=== PATIENT | male | born 1985 | race Caucasian/White ===

== ENCOUNTER 2017-07-13 23:15 | Emergency (ER) | payer OTHER ==
[2017-07-13] MEDS ORDERED: Proparacaine 0.5% Ophth Soln 15 ML Bottle EYEBOTH ONE (23:22)
[2017-07-13] MEDS ORDERED: Benoxinate/Fluorescein 0.4-0.25% Ophth Soln 5 ML Bottle EYEBOTH ONE (23:22)
--- NOTE | 2017-07-13 23:23 | EDM.PDOC ---
ED HPI GENERAL MEDICAL PROBLEM - General Chief Complaint: Eye Problems Stated Complaint: BURNT EYES WITH A BRIM STIFFENER Time Seen by Provider: 07/13/17 23:22 - History of Present Illness INITIAL COMMENTS - FREE TEXT/NARRATIVE: 31-year-old male presents emergency room with eye pain. 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 Patient is does this once before and had severe pain from it at that time now he is doing having similar symptoms. Patient denies any other injury or complaints at this time. Bilateral Eye Pain Score (Numeric/FACES): 9 - Related Data Allergies Allergy/AdvReac Type Severity Reaction Status Date / Time No Known Allergies Allergy Verified 07/13/17 23:24 Home Meds: Home Meds Hydrocodone/Acetaminophen [[place] 5-325 Tablet] 1 - 2 each PO Q6H PRN #10 tablet 07/13/17 [Rx] ED ROS GENERAL - Review of Systems Review Of Systems: See Below Constitutional: Reports: No Symptoms HEENT: Reports: Eye Pain Respiratory: Reports: No Symptoms Cardiovascular: Reports: No Symptoms GI/Abdominal: Reports: No Symptoms ED EXAM GENERAL W FULL EYE - Physical Exam Exam: See Below Exam Limited By: No Limitations General Appearance: Alert, No Apparent Distress Visual Acuity (R) 20/: 25 (20/30 both) Visual Acuity (L) 20/: 40 With Correction: No Eyelids: Bilateral: Other (Watery) Conjunctiva & Sclera: Bilateral: Conjunctival Edema Cornea Exam: Bilateral: Examined with Flourescein (Punctate staining diffusely across both corneas) Extraocular Movements: Bilateral: Intact Pupils: Normal Accommodation Pupillary Reaction: Bilateral: Brisk Ears: Normal External Exam, Normal Canal, Normal TMs Nose: Normal Inspection, Normal Mucosa Throat/Mouth: Normal Inspection, Normal Lips, Normal Teeth, Normal Gums, Normal Oropharynx, Normal Voice, No Airway Compromise Head: Other (He has facial what looks like sunburn) Neck: Normal Inspection, Supple, Non-Tender, Full Range of Motion. No: Lymphadenopathy (L), Lymphadenopathy (R) Respiratory/Chest: Lungs Clear, Normal Breath Sounds Cardiovascular: Regular Rate, Rhythm, No Edema, No Murmur Course - Vital Signs Last Recorded V/S: Last Vital Signs Temp 36.7 C 07/13/17 23:21 Pulse 93 07/13/17 23:21 Resp 18 07/13/17 23:21 BP 147/97 H 07/13/17 23:21 Pulse Ox 97 07/13/17 23:21 - Orders/Labs/Meds Meds: Medications Discontinued Medications Generic Name Dose Route Start Last Admin Trade Name Freq PRN Reason Stop Dose Admin Erythromycin 1 gm 07/13/17 23:44 Erythromycin 0.5% Ophth Oint EYEBOTH 07/13/17 23:45 ONETIME ONE Fluorescein Sodium/Benoxinate HCl 1 ml 07/13/17 23:22 Fluress Ophth Soln EYEBOTH 07/13/17 23:23 ONETIME ONE Proparacaine HCl 1 ml 07/13/17 23:22 Proparacaine 0.5% Ophth Soln EYEBOTH 07/13/17 23:23 ONETIME ONE Departure - Departure Time of Disposition: 23:43 Disposition: Home, Self-Care 01 Clinical Impression: Photokeratitis of both eyes - Discharge Information Prescriptions: Hydrocodone/Acetaminophen [[place] 5-325 Tablet] 1 - 2 each PO Q6H PRN #10 tablet PRN Reason: Pain Forms: ED Department Discharge Additional Instructions: Return to emergency room with any questions problems worsening symptoms. Follow-up with your eye doctor in 2 days if not completely better. Use erythromycin ointment half inch to each eye every 4 hours while awake. This works like eye grease. You been given some pain pills take one or 2 every 6 hours as needed for pain allow 12 hours after using this medication before driving or returning to work. This medication can cause constipation consider taking Colace 100 mg 2-3 times a day while taking this.
[2017-07-13] MEDS ORDERED: Erythromycin Base 0.5% Ophth Oint 1 GM Tube EYEBOTH ONE (23:44)
[2017-07-13] MEDS ORDERED: Acetaminophen/HYDROcodone 325-5 MG Tab ONE (23:51)
== END 2017-07-13 23:58 | disposition home or self-care (01) ==
LOC: JD.ED 23:15
DX: H16.133 Photokeratitis, bilateral (principal)
CPT/HCPCS: 99283; A9270

== ENCOUNTER 2017-07-14 02:51 | Emergency (ER) | payer OTHER ==
[2017-07-14] MEDS ORDERED: Erythromycin Base 0.5% Ophth Oint 1 GM Tube EYEBOTH ONE (03:19)
--- NOTE | 2017-07-14 03:23 | EDM.PDOC ---
ED HPI GENERAL MEDICAL PROBLEM - General Chief Complaint: Eye Problems Stated Complaint: EYES BURNING Time Seen by Provider: 07/14/17 03:16 - History of Present Illness INITIAL COMMENTS - FREE TEXT/NARRATIVE: 31-year-old male returns emergency room with continued eye pain. The patient went home put in more erythromycin ointment twice he used up the whole tube and managed to lose the tube. He took one of the pain pills and he is back requesting eyedrops. I informed him in no uncertain terms we cannot continue to use the eyedrops. He was seen a short time ago diagnosed with photokeratitis secondary to welding without proper facial and eye protection. Bilateral Eye Pain Score (Numeric/FACES): 9 - Related Data Allergies Allergy/AdvReac Type Severity Reaction Status Date / Time No Known Allergies Allergy Verified 07/14/17 03:02 Home Meds: Home Meds Hydrocodone/Acetaminophen [[place] 5-325 mg Tablet] 1 each PO Q4H PRN #5 tablet 07/13/17 [Rx] Hydrocodone/Acetaminophen [[place] 5-325 Tablet] 1 - 2 each PO Q6H PRN #10 tablet 07/13/17 [Rx] Past Medical History - Past Health History Medical/Surgical History: Denies Medical/Surgical History Social & Family History - Tobacco Use Smoking Status *Q: Current Every Day Smoker Years of Tobacco use: 10 Packs/Tins Daily: 0.2 - Caffeine Use Caffeine Use: Reports: None - Recreational Drug Use Recreational Drug Use: No ED ROS GENERAL - Review of Systems Review Of Systems: See Below Constitutional: Reports: No Symptoms Respiratory: Reports: No Symptoms Cardiovascular: Reports: No Symptoms GI/Abdominal: Reports: No Symptoms ED EXAM GENERAL W FULL EYE - Physical Exam Exam: See Below General Appearance: Alert, No Apparent Distress Eye Exam: Bilateral Eye: Other (His eye exam is basically unchanged from prior) Respiratory/Chest: No Respiratory Distress, Lungs Clear, Normal Breath Sounds Cardiovascular: Normal Peripheral Pulses, Regular Rate, Rhythm, No Edema Course - Vital Signs Last Recorded V/S: Last Vital Signs Temp 36.7 C 07/14/17 03:00 Pulse 75 07/14/17 03:00 Resp 16 07/14/17 03:00 BP 141/95 H 07/14/17 03:00 Pulse Ox 97 07/14/17 03:00 - Orders/Labs/Meds Meds: Medications Discontinued Medications Generic Name Dose Route Start Last Admin Trade Name Josselyn PRN Reason Stop Dose Admin Erythromycin 1 gm 07/14/17 03:19 07/14/17 03:23 Erythromycin 0.5% Ophth Oint EYEBOTH 07/14/17 03:20 1 gm ONETIME ONE Administration - Re-Assessments/Exams Free Text/Narrative Re-Assessment/Exam: 07/14/17 03:35 Patient is given another tube erythromycin ointment this is applied he is resting comfortably. Departure - Departure Time of Disposition: 03:35 Disposition: Home, Self-Care 01 Clinical Impression: Photokeratitis of both eyes - Discharge Information Forms: ED Department Discharge Additional Instructions: Return to the emergency room questions problems worsening symptoms Use your medications as directed. Use erythromycin ointment 1/2 inch to each eye every 4 hours while awake this works best if you put it inside the lower eyelid.
== END 2017-07-14 03:42 | disposition home or self-care (01) ==
LOC: JD.ED 02:51
DX: H16.133 Photokeratitis, bilateral (principal); F17.210 Nicotine dependence, cigarettes, uncomplicated; W89.0XXA Exposure to welding light (arc), initial encounter
CPT/HCPCS: 99283; A9270